=== PATIENT | male | born 2000 | race Caucasian/White ===

== ENCOUNTER 2020-11-19 00:56 | Emergency (ER) | payer BC ==
[~2020-11-19] VITALS: Ht 182.9 cm; Wt 84.1 kg
[2020-11-19] MEDS ORDERED: CRUTCHES MC (01:41)
[2020-11-19 02:09] VITALS: BP 117/98; PULSE 69; TEMP 98
== END 2020-11-19 02:09 | disposition home or self-care (01) ==
LOC: COL.ER 00:56
DX: S93.401A Sprain of unspecified ligament of right ankle, initial encounter (principal); F10.10 Alcohol abuse, uncomplicated; X50.1XXA Overexertion from prolonged static or awkward postures, initial encounter